=== PATIENT | female | born 1990 | race Caucasian/White ===

== ENCOUNTER 2023-07-24 07:45 | Inpatient (IN) | payer OTHER, SELFPAY ==
[2023-07-24 08:02] VITALS: BP 126/75; BMI 30.1
[2023-07-24 08:51] LABS: % Basophils 0.3 % (0-2); % Eosinophils 1.1 % (0-6); % Immature Granulocytes 0.3 % (0-0.5); % Lymphocytes 24.4 % (20.5-51.1); % Monocytes 6.8 % (1.7-9.3); % Neutrophils 67.1 % (42.2-75.2); Absolute Eosinophils 0.1 10^3/uL (0-0.7); Absolute Lymphocytes 2.3 10^3/uL (1.2-3.4); Absolute Monocytes 0.7 10^3/uL (0.1-0.6); Absolute Neutrophils 6.4 10^3/uL (1.4-6.5); Hemoglobin 11.8 g/dL (12.0-16.0); Mean Corp Hgb Conc. 34.7 g/dL (33.0-37.0); Mean Corpuscular Hgb 29.7 pg (27.0-31.0); Mean Corpuscular Volume 85.6 fL (81.0-99.0); Mean Platelet Volume 11.3 fL (7.4-10.4); Nucleated Red Blood Cells % 0 %; Platelet Count 222 10^3/uL (130-400); Red Blood Cell Count 3.97 10^6/uL (4.20-5.40); Red Cell Dist. Width 12.8 % (11.5-14.5); White Blood Cell Count 9.5 10^3/uL (4.8-10.8)
[2023-07-24] MEDS: PITOCIN 30 UNITS/NSS 500 ML IV (09:53)
[2023-07-24] MEDS: LR 1000 IV (09:54)
[2023-07-24] MEDS: FENTANYL/BUPIVACAINE 100 EPIDURAL (13:23)
[2023-07-24] MEDS: SUBLIMAZE 100 MCG EPIDURAL (13:23)
[2023-07-24] MEDS: MOTRIN 600 MG PO (23:43)
[2023-07-25 04:57] LABS: Hematocrit 31.2 % (37.0-47.0); Hemoglobin 10.8 g/dL (12.0-16.0)
[2023-07-25] MEDS: MOTRIN 600 MG PO ×2 (08:01→20:04)
[2023-07-25] MEDS: PRENATAL PLUS 1 TABLET PO (08:02)
[2023-07-26 15:00] LABS: Syphilis/T. pallidum Ab Reflex Negative (Negative)
== END 2023-07-25 20:40 | disposition home or self-care (01) | DRG 807 ==
LOC: LDRP 07:45
PROVIDERS: ADMITTING PHYSICIAN Obstetrics & Gynecology
PROC: 10E0XZZ Delivery of Products of Conception, External Approach (ICD-10-PCS; 2023-07-24)
DX: O42.02 Full-term premature rupture of membranes, onset of labor within 24 hours of rupture (principal); Z37.0 Single live birth; Z3A.37 37 weeks gestation of pregnancy
CPT/HCPCS: 85014; 85018; 85025; 86780; 86850; 86900; 86901; 99406

== ENCOUNTER 2023-08-04 15:30 | Day surgery (SDC) | payer OTHER, SELFPAY ==
[2023-08-04] VITALS (9 sets, daily range): BP systolic 87–116; BP diastolic 51–64; BMI 26.8
[2023-08-04 11:01] LABS: % Basophils 0.2 % (0-2); % Eosinophils 0.3 % (0-6); % Immature Granulocytes 0.5 % (0-0.5); % Monocytes 4.7 % (1.7-9.3); % Neutrophils 88.3 % (42.2-75.2); Absolute Eosinophils 0.1 10^3/uL (0-0.7); Absolute Immature Granulocytes 0.1 10^3/uL (0-0.05); Absolute Monocytes 0.8 10^3/uL (0.1-0.6); Absolute Neutrophils 15.3 10^3/uL (1.4-6.5); Hematocrit 40.4 % (37.0-47.0); Hemoglobin 13.7 g/dL (12.0-16.0); Mean Corp Hgb Conc. 33.9 g/dL (33.0-37.0); Mean Corpuscular Hgb 29.8 pg (27.0-31.0); Mean Corpuscular Volume 87.8 fL (81.0-99.0); Mean Platelet Volume 10.3 fL (7.4-10.4); Nucleated Red Blood Cells % 0 %; Platelet Count 293 10^3/uL (130-400); Red Cell Dist. Width 13.6 % (11.5-14.5); White Blood Cell Count 17.4 10^3/uL (4.8-10.8)
[2023-08-04 11:08] LABS: ALT (SGPT) 20 U/L (0-35); AST (SGOT) 21 U/L (14-36); Albumin 3.8 g/dl (3.5-5.0); Alkaline Phosphatase 124 U/L (38-126); Blood Urea Nitrogen 9 mg/dl (7-17); Calcium 9.1 mg/dl (8.4-10.2); Carbon Dioxide 21 mmol/L (22-30); Chloride 109 mmol/L (98-107); Glucose 127 mg/dl (70-99); Potassium 3.7 mmol/L (3.5-5.1); Sodium 136 mmol/L (135-145); Total Bilirubin 0.5 mg/dl (0.2-1.3); Total Protein 7.1 g/dl (6.3-8.2); eGFR > 60.00
[2023-08-04 11:10] LABS: Lactic Acid 1.2 mmol/L (0.7-2.0)
--- NOTE | 2023-08-04 12:07 | ED.GENMED ---
History of Present Illness
General
Chief Complaint: Abdominal Pain
Source: patient
Exam Limitations: none
Time Seen by Provider: 08/04/23 11:05
Nursing documentation reviewed up to this point in time: agreed with
Travel History
Have you had any contact with someone who has COVID-19?: No
Do you have any symptoms of coronavirus? Fever > 100 degrees, chills, cough, shortness of breath, sore throat, loss of taste or smell, muscle aches, or headache?: No
History of Present Illness
History of Present Illness:
33 yr old female presented to the ED for evaluation. Patient is 1 week normal vaginal delivery and started yesterday with right lower quadrant pain and nausea. Symptoms started yesterday. Patient reports she did speak to instructional technology teacher
who recommended she come to the ER to rule out retained products. She is currently breast-feeding/pumping. She denies any fevers but does report that her temp was around 99. She denies any urinary frequency urgency or dysuria.
Past History
Past History
ED Past Medical History: Psychiatric (Bipolar disorder, ADHD Takes Wellbutrin, stopped it when she found out she was , was only taking it prn.)
ED Past Surgical History: Other (wisdom teeth)
Social History
Tobacco: Smoker
Alcohol: None
Drug: None
Living: with family
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
Review of Systems
Review of Systems
Allergies reviewed?: Yes
All Other Systems: ROS reviewed and negative except as documented in HPI and ROS
Constitutional: Reports no symptoms; Denies fever, fatigue or chills
Respiratory: Reports no symptoms
Cardiac: Reports no symptoms
ABD/GI: Reports abdominal pain and nausea; Denies vomiting
: Denies dysuria, frequency, flank pain, difficulty voiding or urgency
Musculoskeletal: Reports no symptoms
Skin: Reports no symptoms
Neurological: Reports no symptoms
Psychiatric: Reports no symptoms
Phy Exam
General Physical Exam
General Presentation: no apparent distress
General age: appears stated age
General Skin: warm and dry
General Habitus: normal
General Mental: alert
General Hydration: appears well hydrated
Gastrointestinal Exam
Gastrointestinal Exam: soft and other (tender RLQ )
Neurological Exam
Neurological Exam: alert and oriented x3
Skyler Coma Scale
Eye Opening: Spontaneous
Verbal Response: Oriented
Motor Response: Obeys Commands
GCS Total Score: 15
Musculoskeletal Exam
Musculoskeletal Exam: full ROM
Skin Exam
Skin Exam: normal color and warm/dry
Psychiatric Exam
Psychiatric Exam: normal mood/affect
Course
Orders/Labs/Results
Orders:
Orders
08/04/23 10:46
Complete Blood Count/With Diff Urgent
Comprehensive Metabolic Panel Urgent
Lactic Acid Q4H
Comment: ON ICE, CANCEL 2ND ORDER IF FIRST LACTIC ACID LEVEL <2
Blood Culture Q30M
MARCELO Source: Blood/Venous
Specimen Description:
Comment: FROM 2 SEPARATE SITES
08/04/23 12:19
US Pelvis Only (non-obstetric) Urgent
Comment:
Reason For Exam: pain s/p vag delivery poss retained products
08/04/23 12:20
0.9% Sodium Chloride 1000 ml [Nss] 1,000 ml IV BOLUS
08/04/23 12:22
Ondansetron Injectable [Zofran] 4 mg IV NOW STA
08/04/23 12:24
CT Abd/Pel (IV only)-DH only Urgent
Comment:
Reason For Exam: rlq pain also recent vaginal delivery 1 week ago
08/04/23 14:45
Piperacillin/Tazo 3.375 Gram [Zosyn] 3.375 gram in 50 ml IV NOW
08/04/23 15:01
Urinalysis Reflex To Culture Urgent
Date Specimen was Collected: 08/04/23
Time Specimen was Collected: 10:37
Urine Microscopic Reflex Cult Urgent
Blood Culture Q30M
MARCELO Source: Blood/Venous
Specimen Description:
Comment: FROM 2 SEPARATE SITES
08/04/23 15:33
HYDROmorphone [Dilaudid] 0.25 mg IV PACU-Q5MPRN PRN
HYDROmorphone [Dilaudid] 0.5 mg IV PACU-Q5MPRN PRN
Meperidine [Demerol] 12.5 mg IV PACU-Q5MPRN PRN
Ondansetron Injectable [Zofran] 4 mg IV PACU-ONCEPRN PRN
Prochlorperazine [Compazine] 5 mg IV PACU-ONCEPRN PRN
Notify MD As Directed
Notify physician if: for SDS patients with known or suspected sleep obstructive sleep apnea, monitor in the
PACU.
Notify MD for any apneic/desaturation episodes
O2 Therapy [RESP] Urgent
Titrate/Wean O2 to maintain O2 sat greater than (%): 92
Special Instructions: -Provide supplemental oxygen to achieve O2 sat of 92% or greater.
-After 15 min, may wean O2 and discontinue if patient is able to maintain O2 sat of 92%
or greater during recovery period.
If patient is a discharge home, without oxygen therapy, notify anestheiologist if
unable to maintain O2 SAT of 92% or greater on room air for MD clearance.
08/04/23 15:45
Normosol (Mult Electrolytes) [Normosol-R] 1,000 ml IV PER PROTOCOL
Abnormal Lab Results
08/04/23 08/04/23
10:46 15:01
WBC 17.4 H 10^3/uL
(4.8-10.8)
Abs Immat Gran (auto) 0.1 H 10^3/uL
(0-0.05)
Absolute Neuts (auto) 15.3 H 10^3/uL
(1.4-6.5)
Absolute Lymphs (auto) 1.0 L 10^3/uL
(1.2-3.4)
Absolute Monos (auto) 0.8 H 10^3/uL
(0.1-0.6)
Neutrophils % 88.3 H %
(42.2-75.2)
Lymphocytes % 6.0 L %
(20.5-51.1)
Chloride 109 H mmol/L
(98-107)
Carbon Dioxide 21 L mmol/L
(22-30)
Glucose 127 H mg/dl
(70-99)
Urine Ketones Trace A
(Negative)
Ur Occult Blood Reflex 2+ A
(Negative)
Leukocyte Esterase Rfl Trace A
(Negative)
Urine RBC 11-15 A /HPF
(0-2)
Urine Glucose Trace A
(Negative)
08/04/23 10:46
08/04/23 10:46
Vital Signs
Initial and Last Documented VS:
Initial Vital Signs
Temp Pulse Resp BP Pulse Ox
99.9 F 69 18 116/63 98
08/04/23 10:34 08/04/23 10:34 08/04/23 10:34 08/04/23 10:34 08/04/23 10:34
Last Documented Vital Signs
Temp Pulse Resp BP Pulse Ox
99.9 F 69 18 116/63 98
08/04/23 10:34 08/04/23 10:34 08/04/23 10:34 08/04/23 10:34 08/04/23 10:34
MDM/Problems Addressed
Differential Diagnosis Includes:
Not limited to appendicitis possible retained products
MDM/Problems Addressed:
Patient is a 33-year-old female status post vaginal delivery 1 week ago presents with right lower quadrant pain. Patient also has nausea symptoms started yesterday. CAT scan shows acute appendicitis no free air however as per radiology unable to
rule out retained will obtain US to rule out retained products. Case reviewed with who eval pt. Zosyn ordered.
US reviewed endometrium measuring up to 2.1 cm with complex since including fluid density finding could represent blood products retained proximal of conception also possible recommend at least correlation with serial beta hCG levels. This was
discussed with OB/GYNs DR Reich who Did recommend Zosyn which was ordered and she will follow-up with patient in the PACU.
*Radiology
Radiology exam reviewed: radiology read reviewed
*Pulse Oximetry
Patient hypoxic: no
*Critical Care Note
Total Time (30-74mins, 75-104mins- exclusive of procedures): Not Applicable
Data Reviewed
Review of Other/Old Records Reveals: Records
Patient Management
Discussion with other providers: Refrigeration Systems Installer (surgery DR Stewart and MENTAL HEALTH TECHNICIAN DR Reich )
ED Attending Note
-
Portions of this chart may have been created with voice recognition software.� Occasional wrong word or��sound alike� substitutions may have occurred due to the inherent limitations of voice recognition software.
Discharge Plan
Departure
Patient Disposition: OR
Date of Disposition: 08/04/23
Time of Disposition: 14:57
Admit to doctor: Herbie
Presentation/result/management discussed w/ accepting MD/DO: Herbie
Patient with high blood pressure during this ER visit?: No
Condition: Fair
Covid-19: Not Applicable
Discharge Problem:
Acute appendicitis
Prescriptions:
No Action
guaifenesin [Tussin] 100 mg/5 mL Liquid
200 mg PO Q4HPRN PRN (Reason: cough)
guaifenesin [Mucinex] 600 mg Tablet Extended Release 12hr
600 mg PO BIDPRN PRN (Reason: cough)
28-800 mg-mcg Tablet
1 tab PO DAILY
Mommy [place] Capsules
1 cap PO DAILY
ibuprofen 600 mg tablet
400 mg PO Q6HPRN PRN (Reason: moderate pain/cramps)
Referrals:
Kennedy Macario, DO [Family Provider] -
Interventions
Interventions:
*Risk Screen - Suicide Last Done: 08/04/23 11:27
*General Assessment Last Done: 08/04/23 11:27
*Neglect/Abuse Screening Last Done: 08/04/23 11:27
ED- Fall Risk Assessment Last Done: 08/04/23 11:30
*ED COVID-19 Vaccine History Last Done: 08/04/23 11:27
*Nursing Disposition Last Done: 08/04/23 15:29
QW-Mutxvu-Xelsvunwoj Assessment Last Done: 08/04/23 11:29
Discharge Date and Time
Discharge Date/Time: 08/04/23 15:30
Print Language: SINHALA
[2023-08-04] MEDS: ZOFRAN 4 MG IV (12:35)
[2023-08-04] MEDS: NSS 1000 IV (12:35)
[2023-08-04] MEDS: ZOSYN 50 IV (15:03)
[2023-08-04 15:21] LABS: Urine Albumin Trace (Neg - Trace); Urine Bilirubin Negative (Negative); Urine Character Clear (Clear); Urine Color Yellow; Urine Glucose Trace (Negative); Urine Ketone Trace (Negative); Urine Leukocyte Trace (Negative); Urine Nitrite Negative (Negative); Urine Occult Blood 2+ (Negative); Urine Urobilinogen Negative (Neg - 1+)
[2023-08-04 15:30] LABS: Urine Squamous Cell 0-2 /LPF (Few); Urine White Cell 0-2 /HPF (0-5)
--- NOTE | 2023-08-04 16:02 | HP.FOC2 ---
Focused History & Physical
Chief Complaint
HPI:
Chief Complaint: Right lower quadrant abdominal pain
HPI / Indication for Planned Procedure: Patient is a 33-year-old female who is a little over 1 week developing the acute onset of lower generalized abdominal pain yesterday afternoon. She thought it may have been cramps so
continue to observe it. She had mild nausea which deteriorated overnight with vomiting. The pain increased in severity and localized to the right lower quadrant prompting emergency department evaluation. No similar episodes of pain like this in
the past
Relevant Past Medical History: Other (Bipolar, ADHD)
Relevant Social History: Tobacco Use
Relevant Family History: Negative
Relevant Past Surgical History: Negative
Review of Systems
Review of Pertinent Systems: All Systems Negative
Medication
See Medication form for detailed medications: Yes
Medication List (including Herbals & OTC):
Mommy [place] Capsules 1 cap PO DAILY 08/04/23
guaifenesin 100 mg/5 mL oral liquid (Tussin) 200 mg PO Q4HPRN PRN cough 08/04/23
guaifenesin 600 mg tablet, extended release 12 hr (Mucinex) 600 mg PO BIDPRN PRN cough 08/04/23
ibuprofen 600 mg tablet 400 mg PO Q6HPRN PRN moderate pain/cramps 08/04/23
vit no.133-ferrous fumarate 28 mg-folic acid 800 mcg tablet () 1 tab PO DAILY 08/04/23
Medications Reviewed: Yes
Allergies and Reactions
Patient has Allergies: Yes
Noted Allergies and Reactions:
Allergy/AdvReac Type Severity Reaction Status Date / Time
bee pollen Allergy Swelling Verified 08/04/23 10:33
pertussis vaccine,adsorbed Allergy very high Verified 08/04/23 10:33
fever and
turned red
Pertinent Physical Exam
All Other Systems: Negative
Head/Neck: Normal
Lungs: Normal
Heart: Normal
Abdomen: Other (Soft, nondistended, tenderness palpation localizing right lower quadrant with voluntary guarding)
Extremities: Normal
Neurological: Normal
Diagnosis / Assessment
Assessment: 33-year-old female with acute appendicitis.
Reviewed with patient history, examination and CT imaging consistent with acute appendicitis. Discussed both operative and nonoperative management options and associated risks/benefits of approaches. Patient is in agreement to proceed with
appendectomy.
Laparoscopic appendectomy reviewed in detail with the patient. Discussed operative technique utilizing diagrams or drawings, alternative management options, benefits and potential risks such as but not limited to bleeding, infectious or wound
healing complications, iatrogenic injury to surrounding viscera. Discussed the typical postoperative recovery pending operative findings.
Any of the patient's concerns or questions were fully addressed and informed consent was obtained.
Plan: OR for laparoscopic appendectomy.
Empiric antibiotic coverage with Zosyn initiated in the emergency department.
Nothing by mouth, IV fluid hydration and supportive care awaiting operative room availability.
SCDs for DVT prophylaxis
Plan / Procedure
Laparoscopic appendectomy
Anesthesia/Sedation to be done by Anesthesia Provider: Yes
--- NOTE | 2023-08-04 16:05 | W.SUR.PREOP ---
Pre-Operative Surgical Note
-
I have examined this patient prior to the performance of the scheduled procedure.
The patient's condition is unchanged from the time of the current History and
Physical and the patient is able to undergo the scheduled procedure.
--- NOTE | 2023-08-04 16:58 | W.PN.UPDATE ---
Update Note
Progress Note Update
Pt S/P uncomplicated vaginal delivery on 07/24/23. Per OB note, no issues with placenta. Pt referred to Hospital for abdominal pain and fever. ED evaluation positive for appendicitis. U/S done at that time shows fluid collection in uterus, measures
2.1 cm, could be blood or possibly POC. I was able to perform limited abdominal exam on patient in holding prior to surgery. She denies any abnormal bleeding. No pain on palpation of fundus. Some pain along right side, worse in RLQ away from uterus
(consistent with appendicitis).
Uterus observed during laparoscopy for appendectomy, not hyperemic.
Doubt endometritis, patient's symptoms most consistent with appendicitis. Patient has been advised to follow up with me next week, sooner if develops heavy bleeding or continued abdominal pain or fever.
--- NOTE | 2023-08-04 17:50 | W.IMMPOSTOP ---
Addendum entered and electronically signed by Fazal Stoner MD 08/04/23 18:09:
#[id number]
Original Note:
Surgical Immed Post Op Note
-
Primary Surgeon: Herbie
Assisting Surgeon: Phil
Pre-op Diagnosis: Acute Appendicitis
Post-op Diagnosis: Acute Appendicitis
Procedure Performed: Laparoscopic Appendectomy
Anesthesia Type: GETA + 0.25% Marcaine
Specimen / Cultures: Appendix
Estimated Blood Loss: 8mL
Complications: none immediate
Operative Findings: acutely inflamed appendix contained in inflammatory peal btwn cecum and TI. some free fluid with purulence in pelvis. some surrounding exudate. no perforation. no disruption of appendix with appendectomy.
pts updated in waiting area
plan for d/c home this evening from recovery if pain controlled, nausea controlled postop and pt feeling well enough
== END 2023-08-04 19:47 | disposition home or self-care (01) ==
LOC: SDS 15:30
PROVIDERS: ATTENDING PHYSICIAN Surgery; EMERGENCY PHYSICIAN Student in an Organized Health Care Education/Training Program; FAMILY PHYSICIAN Family Medicine
DX: O99.63 Diseases of the digestive system complicating the puerperium (principal); O99.335 Smoking (tobacco) complicating the puerperium; K35.80 Unspecified acute appendicitis; K66.0 Peritoneal adhesions (postprocedural) (postinfection); F17.200 Nicotine dependence, unspecified, uncomplicated
CPT/HCPCS: 44970; 88304; 74177; 76856; 80053; 81003; 81015; 83605; 85025; 87040; 96361; 96365; 96375; 99285; Q9967

== ENCOUNTER 2025-04-01 10:39 | Emergency (ER) | payer OTHER, SELFPAY ==
[2025-04-01 10:41] VITALS: BP 114/78
[2025-04-01 11:18] VITALS: BMI 29.0
[2025-04-01 11:30] VITALS: BP 100/63
--- NOTE | 2025-04-01 11:30 | ED.GENMED ---
History of Present Illness
General
Chief Complaint: Weakness
Source: patient
Exam Limitations: none
Time Seen by Provider: 04/01/25 11:10
History of Present Illness
History of Present Illness:
See MDM
Past History
Past History
ED Past Medical History: Psychiatric (Bipolar disorder, ADHD Takes Wellbutrin, stopped it when she found out she was , was only taking it prn.)
ED Past Surgical History: Other (wisdom teeth)
Social History
Tobacco: Smoker
Alcohol: None
Drug: None
Living: with family
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
Phy Exam
Physical Exam
Physical Exam:
See MDM
Scores
NIH Stroke Score
Level of Consciousness: 0 - Alert
LOC Questions: 0-Answers both correctly
LOC Commands: 0-Performs both correctly
Best Horizontal Gaze: 0-Normal
Visual Bright: 0=Normal, no visual loss
Facial Palsy: 2=Partial paralysis
Motor - Right Arm: 0=No drift 10 seconds
Motor - Left Arm: 0=No drift 10 seconds
Motor - Right Le-No drift 5 seconds
Motor - Left Le-No drift 5 seconds
Limb Ataxia: 0-Absent
Sensation: 0-Normal
Best Language: 0-No aphasia
Dysarthria: 0-Normal
Extinction and Inattention: 0-No abnormality
NIH Total Score:: 2
Course
Orders/Labs/Results
Orders:
Orders
04/01/25 10:47
CT Head W/o Iv Contrast Urgent
Comment: L facial droop/tongue numb, L sided weakness
Reason For Exam: stroke symptoms,started last night,awoke w/more sx
04/01/25 11:11
Electrocardiogram (*1) Urgent
Reason for Study: Chest Pain
Cardiac Monitoring- Treatment ONCE
IV Insert/Care/Rem.- Treatment PRN
04/01/25 11:12
EKG- Treatment ONCE
04/01/25 11:24
C-Reactive Protein Urgent
Comment: ADD ON
Complete Blood Count/With Diff Urgent
Comprehensive Metabolic Panel Urgent
ESR [Erythrocyte Sed Rate] Urgent
HCG, Serum Qualitative Screen Urgent
Lyme Progressive Urgent
Troponin I Urgent
04/01/25 11:39
MR Brain W/o & With Contrast Urgent
Comment:
Reason For Exam: left facial droop and Left arm feels heavy
OK for patient to be off Cardiac Monitoring for MRI: Yes
Recent pill cam endoscopy?: No
04/01/25 11:40
Add On- LAB Urgent
Tests Added?: Serum HCG qualitative
04/01/25 11:44
Prednisone [Deltasone] 60 mg PO NOW STA
04/01/25 12:31
Add On- LAB Urgent
Comments:: tube in lab
Tests Added?: CRP
04/01/25 14:29
Valacyclovir HCl [Valtrex] 1,000 mg PO ONCE ONE
Abnormal Lab Results
04/01/25
11:24
MPV 10.6 H fL
(7.4-10.4)
Glucose 131 H mg/dl
(70-99)
AST 41 H U/L
(14-36)
ALT 55 H U/L
(0-35)
04/01/25 11:24
04/01/25 11:24
Vital Signs
Initial and Last Documented VS:
Initial Vital Signs
Temp Pulse Resp BP Pulse Ox
98.6 F 76 16 114/78 98
04/01/25 10:41 04/01/25 10:41 04/01/25 10:41 04/01/25 10:41 04/01/25 10:41
Last Documented Vital Signs
Temp Pulse Resp BP Pulse Ox
98.6 F 56 15 107/66 98
04/01/25 10:41 04/01/25 14:15 04/01/25 14:15 04/01/25 14:00 04/01/25 14:15
MDM/Problems Addressed
Differential Diagnosis Includes:
Note:
CHIEF COMPLAINT(S)
Tongue tingling, facial weakness, and general weakness on the left side.
HISTORY OF PRESENT ILLNESS
The patient is a 35-year-old female who presents with a complaint of tongue tingling and a sensation of heaviness on the left side of her face, arm, and leg. She reports that these symptoms began yesterday evening when she noticed a change in taste
after eating a fish sandwich that did not taste normal. Upon waking this morning, the patient observed further symptoms including reduced control over the left side of her face, which appeared swollen and felt heavy. She attempted smiling and making
facial expressions, revealing a lack of movement on the left side of her face. Additionally, the patient noted weakness in the left arm and leg particularly feeling more weight on the left side.
RELEVANT QUOTES FROM PATIENT
'I lost taste yesterday,' 'my face felt like it was swollen,' 'the arm and the leg feel heavier,' and 'the left side of my face was not doing it.'
EXTERNAL RECORDS REVIEWED
CT scan reviewed and reported as unremarkable.
PHYSICAL EXAM
General: Alert, no acute distress.
Skin: Warm, dry.
Head: Normocephalic, atraumatic
Neck: Appears supple, trachea midline.
Eyes, Ears, Nose, Mouth, and Throat: Moist mucous membranes
Cardiovascular: No signs of cyanosis. Regular rate and rhythm
Respiratory: Respirations are non-labored.
Abdomen: Non-distended
Musculoskeletal: No deformities
Neurological: Mild left facial droop. No drift noted
Psychiatric: Cooperative, appropriate mood and affect.
PLAN
- Blood work ordered including Lyme disease serology.
- Additional CT scans planned.
- Neurology consult to be initiated.
DIFFERENTIAL DIAGNOSIS
The Differential Diagnosis includes, in no particular order and is not limited to:
- Empire palsy
- Cerebrovascular accident (stroke)
- Multiple sclerosis
- Migraine with aura
- Lyme disease
- Transient ischemic attack
- Brain tumor
- Hemiplegic migraine
- Viral encephalitis
- Cranial neuropathies
SUMMARY OF ENCOUNTER
The patient presented with unilateral facial weakness and left-sided weakness involving the arm and leg, beginning after experiencing altered taste. A CT scan was performed and returned unremarkable. Given her family history of thrombotic events and
her symptom presentation, further testing, including blood work and potential follow-up imaging, were discussed. A neurology consultation is planned to further evaluate for possible neurological conditions, including Empire palsy or other
neurological disorders.
MEDICATION RECONCILIATION
Patient is not on any regular medication but uses alprazolam occasionally for anxiety.
MEDICAL DECISION MAKING
- Number and Complexity of Problems Addressed:
Chronic conditions affecting care such as family history of cardiac issues and the suspect of neurological disorders.
- Data:
Category 1:
- Tests and documents: Ordered blood tests including Lyme disease panel. CT scan reviewed as unremarkable.
Category 2:
- Clinical information obtained from the patient, including family history.
- External records reviewed: CT scan results.
Category 3:
- Discussion with neurology is scheduled.
- Risk:
Prescription medication was not considered necessary at this point, pending further evaluation by the neurology team and additional test results.
DIAGNOSIS
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
- Rule out Lyme disease (ICD-10: A69.20)
- Rule out Stroke/Cerebrovascular accident (ICD-10: I63.9)
CARE-UPDATE
04/01/25 - 11:44
Discussed case with neurologist; despite bizarre presentation, Empire palsy remains likely. Will seek radiology approval for MRI from the emergency department.
EKG
My independent EKG interpretation is:
- Rhythm: Sinus rhythm
- Heart Rate: 57 beats per minute
- Jackson: Normal
- ST Segment: No elevation
- No notable ST depression observed
- No T wave inversions observed
SUMMARY OF ENCOUNTER
The patient, a 35-year-old female, presented with symptoms of unilateral facial weakness and left-sided weakness involving the arm and leg. Initially, she reported altered taste and tingling in the tongue. A CT scan was performed and returned
unremarkable; however, an MRI indicated findings consistent with likely Empire palsy, with no evidence of a stroke. Given her symptoms and family history of cardiovascular issues, further testing and consultation with neurology were considered
necessary.
DISPOSITION
Discharge.
ASSESSMENT
The patient is likely experiencing Empire palsy, as evidenced by MRI findings and symptomatology. Other potential conditions such as stroke were ruled out.
PLAN
The patient was advised to use eyedrops judiciously and tape her eyes shut at night to prevent dryness from incomplete eyelid closure.
MEDICAL DECISION MAKING
- Number and Complexity of Problems Addressed: Chronic conditions affecting care include a strong family history of cardiovascular disease, altered taste, and neurological symptoms. Differential diagnosis includes Empire palsy, cerebrovascular
accident (stroke), multiple sclerosis, migraine with aura, Lyme disease, transient ischemic attack, brain tumor, hemiplegic migraine, viral encephalitis, and cranial neuropathies.
- Data:
- Category 1: Tests and documents reviewed include an unremarkable CT scan and MRI findings consistent with Empire palsy.
- Category 3: Discussion of management with a neurologist was conducted, confirming that Empire palsy remains the likely diagnosis despite the unusual presentation.
- Risk: Consideration of admission or observation was made due to the complexity and risk of the patients presentation. However, the patient was deemed safe for outpatient management with close follow-up due to reassuring work-up results, stable
vitals, control of symptoms, and patient reliability for follow-up.
DIAGNOSIS
- Empire palsy, suspected (ICD-10: G51.0)
- Rule out Lyme disease (ICD-10: A69.20)
- Rule out Stroke/Cerebrovascular accident (ICD-10: I63.9)
*Pulse Oximetry
SaO2: 98
Oxygen Mode of Delivery: Room air
Patient hypoxic: no
*Critical Care Note
Total Time (30-74mins, 75-104mins- exclusive of procedures): Not Applicable
ED Attending Note
-
Portions of this chart may have been created with voice recognition software.� Occasional wrong word or��sound alike� substitutions may have occurred due to the inherent limitations of voice recognition software.
Discharge Plan
Departure
Patient Disposition: Home (Routine Discharge)
Date of Disposition: 04/01/25
Time of Disposition: 14:29
Patient with high blood pressure during this ER visit?: No
Discharge Problem:
Mendieta's palsy
Instructions: Mendieta's palsy
Prescriptions:
New
prednisone 20 mg tablet
60 mg PO DAILY Qty: 7 0RF
valacyclovir 1 gram tablet
1,000 mg PO Q8H 7 Days Qty: 21 0RF
No Action
guaifenesin [Tussin] 100 mg/5 mL Liquid
200 mg PO Q4HPRN PRN (Reason: cough)
guaifenesin [Mucinex] 600 mg Tablet Extended Release 12hr
600 mg PO BIDPRN PRN (Reason: cough)
28-800 mg-mcg Tablet
1 tab PO DAILY
Mommy [place] Capsules
1 cap PO DAILY
ibuprofen 600 mg tablet
400 mg PO Q6HPRN PRN (Reason: moderate pain/cramps)
ibuprofen 200 mg tablet
400 - 600 mg PO Q6HPRN PRN (Reason: moderate pain) Qty: 1 0RF
polyethylene glycol 3350 [Miralax] 17 gram/dose powder
4 g PO DAILY PRN (Reason: Constipation) Qty: 119 0RF
Rx Instructions:
start a laxative such as MIRALAX on day 2 after surgery if no bowel movement yet as long as no nausea/vomiting and passing gas
amoxicillin-pot clavulanate 875-125 mg tablet
1 tab PO Q12 Qty: 11 0RF
oxycodone 5 mg tablet
5 mg PO Q4HPRN PRN (Reason: breakthrough/severe pain) Qty: 5 0RF
acetaminophen [Tylenol Extra Strength] 500 mg tablet
1,000 mg PO Q6HPRN PRN (Reason: mild pain) Qty: 1 0RF
Referrals:
Kennedy Macario DO [Family Provider, Family Practice]
Activity Restrictions/Additional Instructions:
Please return for any worsening symptoms.
You may return at any time if you have further concerns.
Please follow up with your doctor at the first available appointment, preferably this week.
Please use the eyedrops in the left eye and tape it shut at nighttime.
Thank you for choosing [facility].
Interventions
Interventions:
*Risk Screen - Suicide Last Done: 04/01/25 10:41
*General Assessment Last Done: 04/01/25 10:41
*Neglect/Abuse Screening Last Done: 04/01/25 10:41
*ED COVID-19 Vaccine History Last Done: 04/01/25 11:46
*ED Influenza Vaccine History Last Done: 04/01/25 11:46
[facility] Risk Assessment Tool Last Done: 04/01/25 11:46
ED- Cardiac Assessment Last Done: 04/01/25 11:48
ED- Neurological Assessment Last Done: 04/01/25 12:00
ED- Pulmonary Assessment Last Done: 04/01/25 11:48
Discharge Date and Time
Print Language: HUNGARIAN
[2025-04-01 11:34] LABS: Hematocrit 41.2 % (37.0-47.0); Hemoglobin 14.3 g/dL (12.0-16.0); Mean Corp Hgb Conc. 34.7 g/dL (33.0-37.0); Mean Corpuscular Volume 88.8 fL (81.0-99.0); Nucleated Red Blood Cells % 0 %; Platelet Count 211 10^3/uL (130-400); Red Cell Dist. Width 12.3 % (11.5-14.5)
[2025-04-01 11:47] LABS: ALT (SGPT) 55 U/L (0-35); AST (SGOT) 41 U/L (14-36); Albumin 4.6 g/dl (3.5-5.0); Alkaline Phosphatase 85 U/L (38-126); Blood Urea Nitrogen 10 mg/dl (7-17); Calcium 9.7 mg/dl (8.4-10.2); Carbon Dioxide 26 mmol/L (22-30); Chloride 105 mmol/L (98-107); Estimated Creatinine Clearance > 125 ml/min; Glucose 131 mg/dl (70-99); Potassium 3.9 mmol/L (3.5-5.1); Sodium 137 mmol/L (135-145); Total Protein 7.8 g/dl (6.3-8.2); eGFR > 60.00
[2025-04-01 12:00] VITALS: BP 102/69
[2025-04-01 12:00] LABS: Troponin I < 0.012 ng/ml
--- NOTE | 2025-04-01 12:05 | EDRN ---
Pt was interviewed by [employer] intelligence technician for MRI
[2025-04-01] MEDS: DELTASONE 60 MG PO (12:24)
[2025-04-01 13:11] LABS: HCG, Serum Qualitative Screen Negative
[2025-04-01 13:18] LABS: C-Reactive Protein < 5.00 mg/L (0.0-10.00)
[2025-04-01 13:32] VITALS: BP 103/67
[2025-04-01 14:00] VITALS: BP 107/66
--- NOTE | 2025-04-01 14:26 | EDRN ---
Dr. Browning in room speaking w/ patient and spouse (who is on her cell)
[2025-04-01] MEDS: VALTREX 1000 MG PO (14:56)
== END 2025-04-01 14:55 | disposition home or self-care (01) ==
LOC: EMR 10:39
PROVIDERS: EMERGENCY PHYSICIAN Student in an Organized Health Care Education/Training Program; FAMILY PHYSICIAN Family Medicine
DX: G51.0 Bell's palsy (principal); F31.9 Bipolar disorder, unspecified; F90.9 Attention-deficit hyperactivity disorder, unspecified type; F17.200 Nicotine dependence, unspecified, uncomplicated
CPT/HCPCS: 99284; 70450; 70553; 80053; 84484; 84703; 85025; 85652; 86140; 86618; 93005; A9575